=== PATIENT | female | born 1995 | race Caucasian/White ===

== ENCOUNTER → 2018-09-05 | Outpatient (CLI) | payer OTHER ==
[2018-09-05 16:38] LABS: HEMATOCRIT 36.4 % (37.0-47.0); HEMOGLOBIN 12.3 g/dl (12.0-16.0); MEAN CELL VOLUME 87.7 fl (81.0-99.0); MEAN CORPUSCULAR HGB 29.6 pg (27.0-31.0); MEAN CORPUSCULAR HGB CONC 33.8 g/dl (33.0-37.0); MEAN PLATELET VOLUME 9.6 fl (9.6-12.3); RED BLOOD COUNT 4.15 10*6/uL (4.10-5.10); RED CELL DISTRI WIDTH 13.1 % (0-14.5); WHITE BLOOD COUNT 10.7 10*3/uL (4.8-10.8)
[2018-09-05 17:04] LABS: ALKALINE PHOSPHATASE 82 U/L (45-117); BUN 18 mg/dl (7-24); CHLORIDE 107 mmol/L (98-107); CHOLESTEROL 134 mg/dL (<200); CREATININE 0.81 mg/dL (0.55-1.02); HDL CHOLESTEROL 43 mg/dl (40-60); LDL CHOLESTEROL 68 mg/dL (9-159); POTASSIUM 3.6 mmol/L (3.5-5.1); SGOT/AST 14 IU/L (3-35); SGPT/ALT 23 U/L (12-78); SODIUM 140 mmol/L (136-145); TOTAL PROTEIN 7.6 gm/dL (6.4-8.2); TRIGLYCERIDES 115 mg/dl (<150); VLDL CHOLESTEROL 23 mg/dL (6-40)
== END | disposition home or self-care (01) ==
LOC: LAB 16:00
PROVIDERS: Family Medicine
DX: Z13.220 Encounter for screening for lipoid disorders (principal); E55.9 Vitamin D deficiency, unspecified; R53.83 Other fatigue

== ENCOUNTER → 2025-05-07 | Outpatient (CLI) | payer OTHER ==
[2025-05-07 08:20] LABS: MEAN CELL VOLUME 92.3 fl (81.0-99.0); MEAN CORPUSCULAR HGB 29.2 pg (27.0-31.0); MEAN PLATELET VOLUME 9.7 fl (9.6-12.3); NUCLEATED RED BLOOD CELL 0.0 % (0.0-0.0); NUCLEATED RED BLOOD CELL 0.0 10*3/uL (0.0-0.0); PLATELET COUNT AUTOMATED 404.0 10*3/uL (130-400); RED CELL DISTRI WIDTH 13.0 % (0-14.5)
[2025-05-07 09:09] LABS: VITAMIN D, 25-HYDROXY 37.5 ng/mL (30-100)
[2025-05-07 09:14] LABS: BUN 10 mg/dl (9-23); FREE T4 1.31 ng/dl (0.89-1.76); LDL CHOLESTEROL 101 mg/dL (9-159); SGPT/ALT 15 U/L (5-49)
[2025-05-09 11:07] LABS: TESTOS, FREE 2.5 pg/mL (0.0-4.2)
== END | disposition home or self-care (01) ==
LOC: LAB 07:18
PROVIDERS: ATTEND Family Medicine
DX: E74.00 Glycogen storage disease, unspecified (principal); I70.0 Atherosclerosis of aorta; F41.1 Generalized anxiety disorder; R63.5 Abnormal weight gain; I68.0 Cerebral amyloid angiopathy; E28.2 Polycystic ovarian syndrome; Z00.00 Encounter for general adult medical examination without abnormal findings